=== PATIENT | male | born 1965 | race American Indian/Alaskan Native ===

== ENCOUNTER 2017-01-24 19:37 | Emergency (ER) | payer BC, MEDICARE ==
[2017-01-24 20:20] LABS: Basophils % (Auto) 0.4 % (0.0-1.8); Eosinophils % (Auto) 1.7 % (0.0-4.3); Hematocrit 42.6 % (35.5-45.6); Hemoglobin 13.9 gm/dl (11.8-15.2); Mean Corpuscular HGB Conc 33 % (32-34); Mean Corpuscular Hemoglobin 26 pg (28-32); Mean Corpuscular Volume 80 fl (84-94); Platelet Count 281 K/mm3 (140-440); Red Blood Count 5.33 M/mm3 (3.65-5.03); Red Cell Distribution Width 16.1 % (13.2-15.2); White Blood Count 10.3 K/mm3 (4.5-11.0)
[2017-01-24 20:38] LABS: Erythrocyte Sedimentation Rate 9 mm/Hr (0-20)
[2017-01-24 20:41] LABS: Anion Gap 22 mmol/L; Blood Urea Nitrogen 12 mg/dL (9-20); Calcium 8.9 mg/dL (8.4-10.2); Carbon Dioxide 22 mmol/L (22-30); Chloride 98.6 mmol/L (98-107); Glucose 110 mg/dL (75-100); Potassium 3.9 mmol/L (3.6-5.0); Sodium 139 mmol/L (137-145)
[2017-01-25] MEDS ORDERED: TORADOL IM ONE (03:32)
[2017-01-25] MEDS ORDERED: DELTASONE PO ONE (03:32)
--- NOTE | 2017-01-25 03:38 | Emergency Department Report ---
ED Extremity Problem HPI - General Chief complaint: Extremity Problem,Nontraumatic Stated complaint: HBP Time Seen by Provider: 01/25/17 03:31 Source: patient Mode of arrival: Ambulatory Limitations: No Limitations - History of Present Illness MD Complaint: extremity pain, extremity swelling Onset/Timin -: week(s) Location: upper extremity, lower extremity History of Same: Yes -: Yes arthralgia (gout) Radiation: none Severity scale (0 -10): 4 Quality: aching Consistency: constant Improves with: nothing Worsens with: other (allupurinol) Associated Symptoms: myalgias, arthralgias - Related Data Home Medications Medication Instructions Recorded Confirmed Last Taken Allopurinol [Zyloprim] 100 mg PO QDAY 01/25/17 01/25/17 1 Day Ago Metoprolol [Lopressor TAB] 50 mg PO BID 01/25/17 01/25/17 1 Day Ago Nifedipine ER 90 mg PO DAILY 01/25/17 01/25/17 1 Year Ago metFORMIN [Glucophage] 500 mg PO BID 01/25/17 01/25/17 1 Day Ago Previous Rx's Medication Instructions Recorded Last Taken Type HYDROcodone/APAP 7.5-325 [Savage 1 each PO Q6HR PRN #10 tablet 02/11/16 Unknown Rx 7.5/325] Indomethacin Sr (Nf) [Indocin Sr] 75 mg PO Q24HR #5 capsule.er 02/11/16 Unknown Rx Indomethacin [Indocin] 50 mg RC TID #30 supp.rect 01/25/17 Unknown Rx predniSONE [Deltasone] 40 mg PO QDAY #5 tab 01/25/17 Unknown Rx Allergies Allergy/AdvReac Type Severity Reaction Status Date / Time No Known Allergies Allergy Verified 02/19/15 21:19 ED Review of Systems ROS: Stated complaint: HBP Other details as noted in HPI Constitutional: denies: chills, fever Eyes: denies: eye pain, eye discharge, vision change ENT: denies: ear pain, throat pain Respiratory: denies: cough, shortness of breath, wheezing Cardiovascular: denies: chest pain, palpitations Endocrine: no symptoms reported Gastrointestinal: denies: abdominal pain, nausea, diarrhea Genitourinary: denies: urgency, dysuria Musculoskeletal: joint swelling, arthralgia, myalgia Skin: denies: rash, lesions Neurological: denies: headache, weakness, paresthesias Psychiatric: denies: anxiety, depression Hematological/Lymphatic: denies: easy bleeding, easy bruising ED Past Medical Hx - Past Medical History Previous Medical History?: Yes Hx Hypertension: Yes Hx CVA: Yes Hx Heart Attack/AMI: No Hx Congestive Heart Failure: No Hx Diabetes: Yes Additional medical history: HIGH CHOLESTEROL - Surgical History Past Surgical History?: No - Social History Smoking Status: Current Every Day Smoker Substance Use Type: Alcohol - Medications Home Medications: Home Medications Medication Instructions Recorded Confirmed Last Taken Type HYDROcodone/APAP 7.5-325 [Savage 1 each PO Q6HR PRN #10 tablet 02/11/16 01/25/17 Unknown Rx 7.5/325] Indomethacin Sr (Nf) [Indocin Sr] 75 mg PO Q24HR #5 capsule.er 02/11/16 Unknown Rx Allopurinol [Zyloprim] 100 mg PO QDAY 01/25/17 01/25/17 1 Day Ago History Indomethacin [Indocin] 50 mg RC TID #30 supp.rect 01/25/17 Unknown Rx Metoprolol [Lopressor TAB] 50 mg PO BID 01/25/17 01/25/17 1 Day Ago History Nifedipine ER 90 mg PO DAILY 01/25/17 01/25/17 1 Year Ago History metFORMIN [Glucophage] 500 mg PO BID 01/25/17 01/25/17 1 Day Ago History predniSONE [Deltasone] 40 mg PO QDAY #5 tab 01/25/17 Unknown Rx ED Physical Exam - General Limitations: No Limitations General appearance: alert, in no apparent distress - Head Head exam: Present: atraumatic, normocephalic - Eye Eye exam: Present: normal appearance, PERRL, EOMI Pupils: Present: normal accommodation - ENT ENT exam: Present: mucous membranes moist - Neck Neck exam: Present: normal inspection - Respiratory Respiratory exam: Present: normal lung sounds bilaterally. Absent: respiratory distress, wheezes, rales, rhonchi, stridor - Cardiovascular Cardiovascular Exam: Present: regular rate, normal rhythm. Absent: systolic murmur, diastolic murmur, rubs, gallop - GI/Abdominal GI/Abdominal exam: Present: soft, normal bowel sounds - Rectal Rectal exam: Present: deferred - Extremities Exam Extremities exam: Present: tenderness, normal capillary refill, joint swelling. Absent: calf tenderness - Expanded Lower Extremity Exam Left Hip exam: Present: normal inspection Upper Leg exam: Present: normal inspection Knee exam: Present: normal inspection Lower Leg exam: Present: normal inspection Ankle exam: Present: tenderness, swelling, deformity. Absent: abrasion, laceration, ecchymosis, crepidus, dislocation, erythema, anterior draw sign Foot/Toe exam: Present: tenderness, swelling. Absent: abrasion, laceration, ecchymosis, deformity, crepidus, dislocation, erythema, calcaneal tenderness, tenderness at base of 5th metatarsal, nail avulsion, subungual hematoma Neuro vascular tendon exam: Present: no vascular compromise, abnormal 2-point discrimination, decreased fine/light touch, significant pain with passive ROM of distal joint (left great toe ). Absent: pulse deficit, abnormal cap refill, motor deficit, sensory deficit, tendon deficit, extremity cold to touch, pallor , foot drop, peroneal nerve deficit ED Course Vital Signs 01/24/17 19:45 Temperature 98.4 F Pulse Rate 86 Respiratory 18 Rate Blood Pressure 158/93 [Right] O2 Sat by Pulse 100 Oximetry ED Medical Decision Making - Lab Data Result diagrams: 01/24/17 20:05 01/24/17 20:05 Laboratory Results - last 24 hr 01/24/17 01/24/17 01/24/17 20:05 20:05 20:05 WBC 10.3 RBC 5.33 H Hgb 13.9 Hct 42.6 MCV 80 L MCH 26 L MCHC 33 RDW 16.1 H Plt Count 281 Lymph % (Auto) 28.2 Carter % (Auto) 7.3 Eos % (Auto) 1.7 Baso % (Auto) 0.4 Lymph # 2.9 Carter # 0.8 Eos # 0.2 Baso # 0.0 Seg Neutrophils % 62.4 Seg Neutrophils # 6.4 ESR 9 Sodium 139 Potassium 3.9 Chloride 98.6 Carbon Dioxide 22 Anion Gap 22 BUN 12 Creatinine 1.0 Estimated GFR > 60 BUN/Creatinine Ratio 12.00 Glucose 110 H Lactic Acid 1.60 Calcium 8.9 C-Reactive Protein 2.40 H NT-Pro-B Natriuret Pep 253.7 - Medical Decision Making pt is a 52 y/o aam with hx of gout, htn, DMII pt endorses frequent exacerbations of gout pain and flares pt currenty on allopurinol po daily , pt endorse "my left foot is in gout attack" x 1 week pt denies fever or chills pt is ambulatory to based line per patient and family exam , left ankle and foot with mild edema no fever no hot to touch pain with palpation ppepb+2, [employer] <3 sec bilat, plan: indomethicine and prednisone po at this regimen has worked well for patient in past , hold allopurinol until compeletion of indomethacin and prednisone, pt advises pain improving with rx given in E[facility] , pt will follow up with primary care doctor on friday, pt and familiy member verbalized understanding and agreement with discharge plan. Critical care attestation.: If time is entered above; I have spent that time in minutes in the direct care of this critically ill patient, excluding procedure time. ED Disposition Clinical Impression: Gout due to renal impairment, left ankle and foot Disposition: - TO HOME OR SELFCARE Is pt being admited?: No Does the pt Need Aspirin: No Condition: Good Instructions: Acute Gouty Arthritis (ED) Prescriptions: Indomethacin [Indocin] 50 mg RC TID #30 supp.rect predniSONE [Deltasone] 40 mg PO QDAY #5 tab Referrals: PRIMARY CARE, [Primary Care Provider] - 3-5 Days Forms: Work/School Release Form(ED) Time of Disposition: 03:48
[2017-01-25 03:57] VITALS: BP 181/89
== END 2017-01-25 04:04 | disposition home or self-care (01) ==
LOC: ED 19:37
DX: M10.072 Idiopathic gout, left ankle and foot (principal); I10 Essential (primary) hypertension; E11.9 Type 2 diabetes mellitus without complications; E78.00 Pure hypercholesterolemia, unspecified; F17.210 Nicotine dependence, cigarettes, uncomplicated; Z86.73 Personal history of transient ischemic attack (TIA), and cerebral infarction without residual deficits
CPT/HCPCS: 36415; 80048; 82140; 83880; 85025; 85652; 86140; 96372; 99283; J1885; J7512